=== PATIENT | female | born 1965 | race Asian ===

== ENCOUNTER 2017-01-23 07:06 | Day surgery (SDC) | payer OTHER ==
[~2017-01-23] VITALS: Ht 154.9 cm; Wt 46.3 kg
[2017-01-23] MEDS ORDERED: SIMETHICONE 40 MG/0.6 ML ML ONE (07:41)
[2017-01-23] MEDS: MIDAZOLAM HCL 5 MG/5 ML VIAL ONE ×3 (08:23→08:31)
[2017-01-23] MEDS: fentaNYL CITRATE/PF 100 MCG/2 ML AMP ONE ×3 (08:23→08:31)
[2017-01-23 09:31] VITALS: BP_SYST 107
== END 2017-01-23 09:30 | disposition home or self-care (01) ==
LOC: SDS 07:06 → SMU 08:57 → SDS 09:30
PROVIDERS: ATTEND Surgery
DX: Z12.11 Encounter for screening for malignant neoplasm of colon (principal)
CPT/HCPCS: 45378; J2250; J3010; J7030

== ENCOUNTER 2017-04-10 11:11 | Day surgery (SDC) | payer OTHER ==
[~2017-04-10] VITALS: Ht 154.9 cm; Wt 47.2 kg
[2017-04-10] MEDS ORDERED: HYDROmorphone 2 MG/ML VIAL IVP PRN ×2 (13:00)
[2017-04-10] MEDS ORDERED: LR 1,000 ML IV SCH (13:00)
[2017-04-10] MEDS ORDERED: MEPERIDINE HCL/PF 25 MG/ML DISP.SYRIN IVP PRN (13:00)
[2017-04-10] MEDS ORDERED: HYDROmorphone 1 MG INJ. 1 MG/ML AMPUL IVP PRN (13:00)
[2017-04-10] MEDS ORDERED: ONDANSETRON HCL 4 MG/2 ML VIAL IVP PRN (13:45)
[2017-04-10] MEDS ORDERED: ACETAMINOPHEN 500 MG TABLET PO PRN (13:45)
[2017-04-10] MEDS ORDERED: MORPHINE 4 MG/ML INJ. SYRINGE IVP PRN (15:00)
[2017-04-10 15:08] VITALS: BP_SYST 110
== END 2017-04-10 15:40 | disposition home or self-care (01) ==
LOC: SDS 11:11 → SMU 11:12 → SDS 15:40
PROVIDERS: ATTEND Surgery
DX: K64.8 Other hemorrhoids (principal); K64.4 Residual hemorrhoidal skin tags; E11.9 Type 2 diabetes mellitus without complications
CPT/HCPCS: 46255; 88304; J7120